=== PATIENT | female | born 1945 | race Caucasian/White ===

== ENCOUNTER → 2022-01-11 | Outpatient (RCR) | payer MEDICARE, OTHER | END | disposition home or self-care (01) | PROVIDERS: ATTEND Orthopaedic Surgery | DX: M25.551 Pain in right hip (principal); R53.1 Weakness; I10 Essential (primary) hypertension ==

== ENCOUNTER 2022-01-13 16:02 | Outpatient (RCR) | payer MEDICARE, OTHER | END 2022-02-10 | disposition home or self-care (01) | PROVIDERS: ATTEND Orthopaedic Surgery | DX: M25.551 Pain in right hip (principal); R53.1 Weakness; I10 Essential (primary) hypertension ==